=== PATIENT | male | born 1970 | race African-American/Black ===

== ENCOUNTER 2017-03-29 17:18 | Outpatient (CLI) | payer OTHER ==
--- NOTE | 2017-03-29 18:49 | RAD ---
LEFT SHOULDER: 03/29/17 Three views obtained. HISTORY: Fall with injury to left shoulder. AC joint appears normally aligned. No evidence of fracture or dislocation. IMPRESSION: No acute abnormality identified. POS: [facility]
== END 2017-03-29 17:19 | disposition home or self-care (01) ==
LOC: MADRAD 17:18
PROVIDERS: ATTEND Physician Assistant
DX: M25.512 Pain in left shoulder (principal)

== ENCOUNTER 2024-03-01 18:22 | Emergency (ER) | payer MEDICAID, OTHER ==
[2024-03-01] MEDS ORDERED: Lidocaine 1% PF 5 ML VIAL ONE (18:42)
[2024-03-01] MEDS ORDERED: traMADol HCl 50 MG TAB ONE (19:21)
[2024-03-01] MEDS ORDERED: Sulfameth/Trimethoprim DS 800-160mg TAB ONE (19:21)
== END 2024-03-01 19:30 | disposition home or self-care (01) ==
LOC: MADERS 18:22
DX: L02.11 Cutaneous abscess of neck (principal)
CPT/HCPCS: 10060